=== PATIENT | male | born 1955 ===

== ENCOUNTER 2024-09-09 12:15 | Inpatient (IN) | payer OTHER ==
[~2024-09-09] VITALS: Ht 167.6 cm; Wt 83.0 kg
[2024-09-10] MEDS ORDERED: COZAAR100 MG PO (13:13)
[2024-09-10] MEDS ORDERED: NORVASC5 MG PO (13:13)
[2024-09-10] MEDS ORDERED: ROSUVASTATIN CA20 MG PO (13:13)
[2024-09-12 15:11] LABS: RH POSITIVE
[2024-09-16] MEDS ORDERED: CEFTRIAXONE SODIUM 2,000 MG VIAL ONE (07:54)
[2024-09-16] MEDS ORDERED: METRONIDAZOLE/SODIUM CHLORIDE 500 MG/100 ML PIGGYBACK IV ONE (07:54)
[2024-09-16] MEDS ORDERED: BUPIVACAINE HCL/MPF 0.5% 30ML VIAL ONE (10:05)
[2024-09-16] MEDS ORDERED: LIDOCAINE HCL 1%/EPINEPHRINE 20ML VIAL IJ ONE ×2 (10:05→11:30)
[2024-09-16] MEDS ORDERED: BUPIVACAINE HCL 30 ML VIAL IJ ONE (11:30)
[2024-09-16] MEDS ORDERED: RINGERS SOLUTION,LACTATED 1,000 ML IV SCH (12:45)
[2024-09-16] MEDS ORDERED: DEXTROSE 50 % IN WATER 0.5 G/ML VIAL IV PRN (12:45)
[2024-09-16] MEDS ORDERED: ONDANSETRON HCL 2 MG/ML VIAL IV PRN (12:45)
[2024-09-16] MEDS ORDERED: MORPHINE SULFATE 4 MG/ML CARTRIDGE IV PRN (12:45)
[2024-09-16] MEDS ORDERED: OxyCODONE HCL 5 MG TABLET (ROXICODONE) PO PRN (12:45)
[2024-09-16] MEDS ORDERED: MORPHINE SULFATE 4 MG/ML VIAL IV ONE ×2 (13:15→14:15)
[2024-09-16] MEDS ORDERED: ACETAMINOPHEN 500 MG GEL..CAP PO SCH (14:00)
[2024-09-16 14:34] LABS: BASO % 0.4 % (0.1-1.2); EOS # 0.06 (0.04-0.54); EOS % 0.6 % (0.7-7.0); HEMATOCRIT 40.1 % (40.1-51.0); HEMOGLOBIN 13.2 g/dL (13.7-17.5); LYMPH # 1.72 (1.18-3.74); LYMPH % 17.5 % (19.3-53.1); MEAN CORPUSCULAR HEMOGLOBIN 28.8 pg (25.6-32.2); MONO # 0.88 (0.24-0.82); MONO % 8.9 % (4.7-12.5); NEUT # 7.12 (1.56-6.13); NEUT % 72.3 % (34.0-71.1); PLATELET COUNT 162 K/uL (163-369); RED BLOOD COUNT 4.58 M/uL (4.63-6.08); RED CELL DISTRIBUTION WIDTH 14.7 % (11.6-14.4)
[2024-09-16 14:55] LABS: ALBUMIN 3.8 gm/dL (3.4-5.0); CALCIUM 9.1 mg/dL (8.5-10.1); CREATININE SERUM 1.31 mg/dL (0.70-1.30); GFR 54.09; MAGNESIUM 1.9 mg/dL (1.8-2.4); PHOSPHOROUS 2.9 mg/dL (2.5-4.9); POTASSIUM 4.04 mEq/L (3.5-5.1)
[2024-09-16] MEDS ORDERED: ENALAPRILAT DIHYDRATE 1.25 MG/ML VIAL IV PRN (16:45)
[2024-09-16] MEDS ORDERED: GABAPENTIN 300 MG CAPSULE PO SCH (17:00)
[2024-09-16] MEDS ORDERED: POLYETHYLENE GLYCOL 3350 17 GM BLIST.PACK PO SCH (17:00)
[2024-09-16 19:04] VITALS: BP 136/84; O2SAT 95
[2024-09-16 20:29] LABS: ABG PH 7.417 (7.35-7.45)
[2024-09-16 20:30] LABS: ABG PO2 95.4 mmHg (80-100); ABG pCO2 40.8 mmHg (35-45); BASE EXCESS -1.1 mmol/l; BICARBONATE 25.7 mmol/l (23-25); SaO2 97.5 %; Tco2 26.9 mmol/l; allen test SATISFACTORY; mode NASAL CANNULA; puncture site RADIAL RIGHT
[2024-09-16 20:31] LABS: o2 28 %
[2024-09-16] MEDS ORDERED: FAMOTIDINE/PF 20 MG/2 ML VIAL IV PUSH SCH (21:00)
[2024-09-16] MEDS ORDERED: AMLODIPINE BESYLATE 5 MG TABLET PO SCH (21:00)
[2024-09-16 23:48] VITALS: BP 138/79; O2SAT 100
[2024-09-17 06:22] LABS: BASO % 0.4 % (0.1-1.2); EOS # 0.02 (0.04-0.54); EOS % 0.2 % (0.7-7.0); HEMOGLOBIN 14.4 g/dL (13.7-17.5); LYMPH # 1.45 (1.18-3.74); LYMPH % 15.1 % (19.3-53.1); MEAN CORPUSCULAR HEMOGLOBIN 28.5 pg (25.6-32.2); MONO # 0.96 (0.24-0.82); NEUT # 7.11 (1.56-6.13); PLATELET COUNT 146 K/uL (163-369); RED BLOOD COUNT 5.06 M/uL (4.63-6.08); RED CELL DISTRIBUTION WIDTH 14.1 % (11.6-14.4)
[2024-09-17 08:02] VITALS: BP 137/80; O2SAT 95
[2024-09-17 08:43] LABS: ALBUMIN 3.7 gm/dL (3.4-5.0); CALCIUM 9.2 mg/dL (8.5-10.1); CREATININE SERUM 0.9 mg/dL (0.70-1.30); GFR 83.42; MAGNESIUM 1.9 mg/dL (1.8-2.4); PHOSPHOROUS 3.2 mg/dL (2.5-4.9)
[2024-09-17] MEDS ORDERED: LOSARTAN POTASSIUM 100 MG TABLET PO SCH (09:00)
[2024-09-17 12:04] LABS: POTASSIUM 4.07 mEq/L (3.5-5.1)
[2024-09-17 16:24] VITALS: BP 119/69; O2SAT 96
[2024-09-17] MEDS ORDERED: ENOXAPARIN SODIUM 40 MG/0.4 ML SYRINGE SUBCUTANEO SCH (17:00)
[2024-09-17] MEDS ORDERED: ROSUVASTATIN CALCIUM 20 MG TABLET PO SCH (17:00)
[2024-09-18 00:19] VITALS: BP 144/74; O2SAT 97
[2024-09-18 06:55] LABS: BASO % 0.4 % (0.1-1.2); EOS # 0.12 (0.04-0.54); EOS % 1.3 % (0.7-7.0); HEMATOCRIT 42.8 % (40.1-51.0); HEMOGLOBIN 14.2 g/dL (13.7-17.5); LYMPH % 17.8 % (19.3-53.1); MONO # 1.01 (0.24-0.82); MONO % 11.2 % (4.7-12.5); NEUT # 6.21 (1.56-6.13); NEUT % 69.1 % (34.0-71.1); PLATELET COUNT 165 K/uL (163-369); RED CELL DISTRIBUTION WIDTH 14.4 % (11.6-14.4)
[2024-09-18 07:22] LABS: CALCIUM 9.4 mg/dL (8.5-10.1); CREATININE SERUM 0.97 mg/dL (0.70-1.30); GFR 76.51; MAGNESIUM 2.2 mg/dL (1.8-2.4); PHOSPHOROUS 2.6 mg/dL (2.5-4.9); POTASSIUM 3.96 mEq/L (3.5-5.1)
[2024-09-18] MEDS ORDERED: ENOXAPARIN SODIUM 40 MG/0.4 ML SYRINGE SUBCUTANEO SCH (09:00)
[2024-09-18 14:39] VITALS: BP 141/78; O2SAT 95
[2024-09-18 16:46] VITALS: BP 125/79; O2SAT 96
[2024-09-19 00:41] VITALS: BP 132/80; O2SAT 93
[2024-09-19 08:08] VITALS: BP 117/75; O2SAT 96
[2024-09-19] MEDS ORDERED: NEURONTIN300 MG PO (13:22)
[2024-09-19] MEDS ORDERED: A/F PAIN RELIE500 MG PO (13:22)
[2024-09-19] MEDS ORDERED: INTESTINEX680 M1 PO (13:22)
== END 2024-09-19 14:25 | disposition home or self-care (01) | DRG 331 ==
LOC: EDUNIT# 12:15 → O/R 09-16 07:41 → SURH 09-16 12:15 → SURG 09-16 19:12
PROVIDERS: Internal Medicine Geriatric Medicine; ADMIT Surgery; ATTEND Surgery
PROC: 0DBP4ZZ Excision of Rectum, Percutaneous Endoscopic Approach (ICD-10-PCS; 2024-09-16)
PROC: 07BC4ZZ Excision of Pelvis Lymphatic, Percutaneous Endoscopic Approach (ICD-10-PCS; 2024-09-16)
PROC: 0DJD8ZZ Inspection of Lower Intestinal Tract, Via Natural or Artificial Opening Endoscopic (ICD-10-PCS; 2024-09-16)
PROC: 0DTN4ZZ Resection of Sigmoid Colon, Percutaneous Endoscopic Approach (ICD-10-PCS; principal; 2024-09-16 13:00)
PROC: 4A12X4Z Monitoring of Cardiac Electrical Activity, External Approach (ICD-10-PCS; 2024-09-17)
DX: D12.7 Benign neoplasm of rectosigmoid junction (principal); R59.0 Localized enlarged lymph nodes; I10 Essential (primary) hypertension; R06.81 Apnea, not elsewhere classified; E78.5 Hyperlipidemia, unspecified

== ENCOUNTER 2024-09-09 13:10 | Outpatient (CLI) | payer OTHER ==
[2024-09-10] MEDS ORDERED: ROSUVASTATIN CA20 MG PO (13:13)
[2024-09-10] MEDS ORDERED: COZAAR100 MG PO (13:13)
[2024-09-10] MEDS ORDERED: NORVASC5 MG PO (13:13)
== END 2024-09-09 13:13 | disposition home or self-care (01) ==
LOC: RAD 13:10
PROVIDERS: ATTEND Surgery
DX: D12.8 Benign neoplasm of rectum (principal); D12.7 Benign neoplasm of rectosigmoid junction; C19 Malignant neoplasm of rectosigmoid junction; R59.0 Localized enlarged lymph nodes